=== PATIENT | female | born 1995 | race Caucasian/White ===

== ENCOUNTER 2023-10-26 08:01 | Emergency (ER) | payer MEDICAID ==
[~2023-10-26] VITALS: Ht 160 cm; Wt 50.8 kg
[2023-10-26 08:04] VITALS: BP 100/68; PULSE 68; RESP 16; TEMP 98.2; O2SAT 98
[2023-10-26 08:10] VITALS: O2SAT 98
[2023-10-26 09:46] LABS: APPEARANCE,URINE CLOUDY (CLEAR); BILIRUBIN,URINE NEGATIVE (NEGATIVE); BLOOD, URINE TRACE-I (NEGATIVE); COLOR,URINE YELLOW (YELLOW); LEUKOCYTE ESTERASE ,URINE 1+ (NEGATIVE); NITRITE, URINE NEGATIVE (NEGATIVE); PROTEIN,URINE 2+ (NEGATIVE); UGLUCOSE NEGATIVE (NEGATIVE); UROBILINOGEN,URINE 0.2 EU/dL (0.2 - 1)
[2023-10-26 09:56] LABS: BACTERIA,URINE >30 (MANY) /HPF (None Seen); MUCUS,URINE 1+ /LPF (None Seen); RBC,URINE 0-5 /HPF (0-5); SQUAMOUS EPITHELIAL CELL,UR 4-10 (MOD) /LPF (0-3 (FEW))
[2023-10-26] MEDS ORDERED: MAG355OR2 PO (10:19)
[2023-10-26] MEDS ORDERED: CEPH-588 PO (10:19)
[2023-10-26 10:36] VITALS: BP 112/68; PULSE 68; RESP 12; TEMP 98.2; O2SAT 98
== END 2023-10-26 10:36 | disposition home or self-care (01) ==
LOC: MED 08:01
DX: N39.0 Urinary tract infection, site not specified (principal); Z79.899 Other long term (current) drug therapy; Z79.2 Long term (current) use of antibiotics; Z88.2 Allergy status to sulfonamides
CPT/HCPCS: 81001; 81025; 87086; 99283